=== PATIENT | male | born 1965 | race African-American/Black ===

== ENCOUNTER 2018-01-06 06:55 | Day surgery (SDC) | payer BC ==
[2018-01-06] MEDS ORDERED: ONDANSETRON HCL INJ/PF 4 MG/2 ML SDV ONE (07:14)
[2018-01-06] MEDS ORDERED: NALOXONE HCL INJ/PF 0.4 MG/1 ML SDV ONE (07:14)
[2018-01-06] MEDS ORDERED: DIPHENHYDRAMINE HCL 50 MG/ML VIAL ONE (07:14)
[2018-01-06] MEDS ORDERED: GLUCAGON,HUMAN RECOMB 1 MG INJ ONE (07:15)
[2018-01-06] MEDS ORDERED: FENTANYL CITRATE INJ/PF 100 MCG/2 ML AMPUL ONE (07:15)
[2018-01-06] MEDS ORDERED: EPINEPHRINE INJ 1 MG/10 ML DISP.SYRIN ONE (07:15)
[2018-01-06] MEDS ORDERED: FLUMAZENIL INJ 0.5 MG/5 ML VIAL ONE (07:15)
[2018-01-06] MEDS: MIDAZOLAM 2 MG/2 ML INJ ONE ×2 (08:09→08:13)
--- NOTE | 2018-01-06 08:34 | Operative Report ---
Operative Report DATE OF SURGERY: 01/06/18 Operative Report: The risks, benefits and alternatives of the procedure including risks of bleeding, perforation requiring surgery are explained to the patient in detail and informed consent is obtained. Patient was taken back to the endoscopy suite and placed on the left, lateral decubital position. Timeout was called. Conscious sedation medications are provided. A rectal examination is done which did not reveal any masses, tears or fissures. An Olympus videoscope was inserted into the patient's rectum. Scope was then carefully advanced all the way to the cecum. The cecum was identified by the usual anatomical landmarks including the ileocecal valve as well as the appendiceal office.. Photodocumentation is obtained. Prep is reasonably good. The scope was then sequentially pulled back via the various segments of the colon including the ascending colon, hepatic flexure, transverse colon, splenic flexure, descending colon and finally in to the rectosigmoid portions of the colon. Retroflexion maneuvers performed. PREOPERATIVE DIAGNOSIS: Colorectal cancer screening POSTOPERATIVE DIAGNOSIS: Normal screening colonoscopy OPERATION: Diagnostic colonoscopy SURGEON: DENYS PARDO ANESTHESIA: Moderate Sedation - 3 mg of Versed, 100 mcg of fentanyl. Conscious sedation monitoring time 30 minutes. TISSUE REMOVED OR ALTERED: None. COMPLICATIONS: None. ESTIMATED BLOOD LOSS: None. INTRAOPERATIVE FINDINGS: As noted above. PROCEDURE: Patient tolerated procedure well. No immediate postprocedure complications are noted. Patient discharged in good condition. Discharge date 01/06/2018. Discharge diet: Regular. Discharge activity: Regular. 2-3 week follow-up to discuss findings. 10 year surveillance colonoscopy.
[2018-01-06 09:21] VITALS: BP 127/60
== END 2018-01-06 09:30 | disposition home or self-care (01) ==
LOC: END 06:55
PROVIDERS: ATTEND Internal Medicine Gastroenterology
DX: Z12.11 Encounter for screening for malignant neoplasm of colon (principal); R01.1 Cardiac murmur, unspecified
CPT/HCPCS: 45378; J2250; J3010; J0171; J1200; J1610; J2310; J2405; J3490

== ENCOUNTER 2018-01-30 23:44 | Emergency (ER) | payer BC ==
--- NOTE | 2018-01-31 00:38 | ER Document Report ---
ED General - General Chief Complaint: Chest Pain Stated Complaint: CHEST PAINS Time Seen by Provider: 01/31/18 00:36 Notes: Patient is 52-year-old male who presents with complaint of pain in his chest is been intermittent for a few days but became constant today. He says it is a tightness type pain across his chest. Occasional have sharp pain goes into his neck and jaw on the right side. He denies any fevers. No vomiting. No difficulty breathing. He does not think it is related to food. He said he initially felt like it could be indigestion but then it became very constant and therefore he came to the ER. He has no history of heart disease. He does not take any medications. He is really very healthy. His EKG does show bradycardia and the patient does admit that his heart rate is low on a chronic basis and that this is not abnormal for him. He does not smoke. He denies a family history of heart disease. No other complaints at this time. TRAVEL OUTSIDE OF THE [place] IN LAST 30 DAYS: No - Related Data Allergies/Adverse Reactions: No Known Allergies Allergy (Verified 01/30/18 23:45) Past Medical History - Social History Smoking Status: Never Smoker Frequency of alcohol use: None Drug Abuse: None Family History: Reviewed & Not Pertinent - Past Medical History Cardiac Medical History: Denies: Hx Coronary Artery Disease, Hx Heart Attack, Hx Hypertension Pulmonary Medical History: Denies: Hx Asthma, Hx Bronchitis, Hx COPD, Hx Pneumonia Neurological Medical History: Denies: Hx Cerebrovascular Accident, Hx Seizures Musculoskeltal Medical History: Denies Hx Arthritis - Immunizations Hx Diphtheria, Pertussis, Tetanus Vaccination: Yes Review of Systems - Review of Systems Notes: My Normal Review Basic REVIEW OF SYSTEMS: CONSTITUTIONAL : Denies fever, chills, or sweats. Denies recent illness. EENT: Denies eye, ear, throat, or mouth pain or symptoms. Denies nasal or sinus congestion. CARDIOVASCULAR: Chest pain RESPIRATORY: Denies cough, cold, or chest congestion. Denies shortness of breath, difficulty breathing, or wheezing. GASTROINTESTINAL: Denies abdominal pain. Denies nausea, vomiting, or diarrhea. MUSCULOSKELETAL: Denies neck or back pain or joint pain or swelling. SKIN: Denies rash or skin lesions. NEUROLOGICAL: Denies altered mental status or loss of consciousness. Denies headache. Denies weakness or paralysis or loss of use of either side. Denies problems with gait or speech. Denies sensory or motor loss. ALL OTHER SYSTEMS REVIEWED AND NEGATIVE. Physical Exam - Vital signs Vitals: Temp Pulse Resp BP Pulse Ox 97.8 F 43 L 20 112/73 96 01/31/18 00:25 01/31/18 00:25 01/31/18 00:25 01/31/18 00:25 01/31/18 00:25 - Notes Notes: General Appearance: Well nourished, alert, cooperative, no acute distress, no obvious discomfort. Well appearing Vitals: reviewed, See vital signs table. Head: no swelling or tenderness to the head Eyes: PERRL, EOMI, Conjuctiva clear Mouth: No decreasd moisture Throat: No tonsillar inflammation, No airway obstruction, No lymphadenopathy Neck: Supple, no neck tenderness, Chest wall: No reproducible tenderness palpation of chest wall. Lungs: No wheezing, No rales, No rhonci, No accessory muscle use, good air exchange bilaterally. Heart: Normal rate, Regular rythm, No murmur, no rub Abdomen: Normal BS, soft, No rigidity, No abdominal tenderness, No guarding, no rebound Extremities: strength 5/5 in all extremities, good pulses in all extremities, no swelling or tenderness in the extremities, no edema. Skin: warm, dry, appropriate color, no rash Neuro: speech clear, oriented x 3, normal affect, responds appropriately to questions. Course - Re-evaluation Re-evalutation: 01/31/18 02:34 Patient's chest pain was not at all effective on nitro. He looks well. I think is less likely that his chest pain is related to his heart being that patient works out every day. He says he does cardiac workouts every morning and when doing so he he does not have any increase or worsening of his chest pain whatsoever. His heart score is 2. I talked him at length about with the heart score meant and informed him that with a heart score of 2 his predicted risk of a major cardiac event next 6 weeks is 1.6%. I informed him that if he is uncomfortable at this time still more than happy to admit him to the hospital to do further testing or he can follow up with the [facility] outpatient only very closely for further workup and stress testing. Patient says he prefers follow-up outpatient. He says he feels well and does not want to stay in hospital. I think this is appropriate. Informed him he still does have a low threshold to return to ER immediately if he has recurrent worsening chest pain, with the breathing, diaphoresis, or she feels unwell in any way. I will start the patient on enteric-coated aspirin also start taking Pepcid as the patient himself thinks may be his symptoms could be related to indigestion. I informed patient that I cannot tell for sure if his symptoms are related to indigestion and that is why still extremely important that he follows up with the [facility]. Patient agrees with plan will be discharged home. Dictation of this chart was performed using voice recognition software; therefore, there may be some unintended grammatical errors. - Vital Signs Vital signs: Temp Pulse Resp BP Pulse Ox 97.8 F 43 L 20 112/73 96 01/31/18 00:25 01/31/18 00:25 01/31/18 00:25 01/31/18 00:25 01/31/18 00:25 - Laboratory Result Diagrams: 01/31/18 01:31 01/31/18 01:31 - EKG Interpretation by Me Additional EKG results interpreted by me: 01/31/18 00:37 EKG is reviewed and interpreted by me. EKG shows sinus bradycardia with rate of [address] segment elevation or depression. T-wave inversion in lead III and aVF. NC interval slightly prolonged at 220. QRS duration QTc intervals are within normal range. No old EKG available for comparison. Discharge - Discharge Clinical Impression: Chest pain Qualifiers: Chest pain type: unspecified Qualified Code(s): R07.9 - Chest pain, unspecified Condition: Good Disposition: HOME, SELF-CARE Additional Instructions: Please take the enteric coated 81mg aspirin every day. As discussed with you, just because your cardiac workup is normal here does not mean that there is not potential that your chest pain could be related to your heart; therefore, it is still very important that you follow-up with the [facility] worker. Please call Dr. Auguste's office in the morning to make a close follow-up appointment. You need to have a very low threshold to return to the ER if you have worsening chest pain, abnormal sweating, feel weak, have shortness of breath, or if you feel that you are worsening in any way. Please take [id number] Zantac or Pepcid every day and eat a very bland diet and avoid spicy, fatty, and fried foods. Prescriptions: Aspirin [Ecotrin 81 mg EC Tablet] 81 mg PO DAILY #30 tab Referrals: KRISTEN AUGUSTE MD [ACTIVE STAFF] - Follow up tomorrow (call office in the morning to make a follow up appointment within the next 48 hours)
[2018-01-31] MEDS ORDERED: NITROGLYCERIN 2% OINTMENT 1 GM PACKET TP ONE (00:44)
[2018-01-31] MEDS ORDERED: ASPIRIN 325 MG TABLET PO ONE (00:46)
[2018-01-31 01:38] LABS: ABSOLUTE EOSINOPHILS # (AUTO) 0.1 10^3/uL (0.0-0.6); ABSOLUTE LYMPHOCYTES (AUTO) 2.1 10^3/uL (0.5-4.7); ABSOLUTE MONOCYTES (AUTO) 0.4 10^3/uL (0.1-1.4); ABSOLUTE NEUT (AUTO) 2.5 10^3/uL (1.7-8.2); BASOPHILS % (AUTO) 0.6 % (0-2); EOSINOPHILS % (AUTO) 2.2 % (0-6); HEMATOCRIT 42.8 % (37.9-51.0); HEMOGLOBIN 14.6 g/dL (13.5-17.0); LYMPHOCYTES % (AUTO) 40.3 % (13-45); MEAN CORPUSCULAR HEMOGLOBIN 29.9 pg (27.0-33.4); MEAN CORPUSCULAR HGB CONC 34.2 g/dL (32.0-36.0); MEAN CORPUSCULAR VOLUME 88 fl (80-97); MONOCYTES % (AUTO) 7.2 % (3-13); PLATELET COUNT 234 10^3/uL (150-450); RED BLOOD COUNT 4.89 10^6/uL (4.35-5.55); RED CELL DISTRIBUTION WIDTH 13.4 % (11.5-14.0); SEGMENTED NEUTROPHILS % (AUTO) 49.7 % (42-78); TOTAL CELLS COUNTED % (AUTO) 100 %; WHITE BLOOD COUNT 5.1 10^3/uL (4.0-10.5)
--- NOTE | 2018-01-31 01:38 | RADIOLOGY REPORT (SQ) ---
EXAM DESCRIPTION: XR CHEST 1 VIEW CLINICAL HISTORY: 52 years Male, chest pain COMPARISON: None. NUMBER OF VIEWS/TECHNIQUE: 1/AP FINDINGS: Adequate lung volume, clear parenchyma, normal cardiac silhouette, and intact bony thorax. IMPRESSION: No acute cardiopulmonary findings.
[2018-01-31 01:54] LABS: ALANINE AMINOTRANSFERASE 27 U/L (21-72); ALBUMIN 3.8 g/dL (3.5-5.0); ALKALINE PHOSPHATASE 53 U/L (38-126); ANION GAP 7 (5-19); ASPARTATE AMINO TRANSFERASE 25 U/L (17-59); BILIRUBIN,DIRECT 0.3 mg/dL (0.0-0.4); BILIRUBIN,TOTAL 0.7 mg/dL (0.2-1.3); BLOOD UREA NITROGEN 15 mg/dL (7-20); CALCIUM 9.7 mg/dL (8.4-10.2); CARBON DIOXIDE 29 mmol/L (22-30); CHLORIDE 104 mmol/L (98-107); GLUCOSE 104 mg/dL (75-110); POTASSIUM 3.9 mmol/L (3.6-5.0); SODIUM 140.2 mmol/L (137-145); TOTAL PROTEIN 6.8 g/dL (6.3-8.2)
[2018-01-31] MEDS ORDERED: FAMOTIDINE 20 MG TABLET PO ONE (02:33)
[2018-01-31 03:08] VITALS: BP 115/78
--- NOTE | 2018-01-31 09:58 | EKG REPORT ---
SEVERITY:- ABNORMAL ECG - SINUS RHYTHM FIRST DEGREE AV BLOCK BORDERLINE LEFT AXIS DEVIATION NONSPECIFIC T ABNORMALITIES, INFERIOR LEADS : Confirmed by: Audelia Ren MD 31-Jan-2018 09:57:55
== END 2018-01-31 02:48 | disposition home or self-care (01) ==
LOC: ER 23:44
DX: R07.9 Chest pain, unspecified (principal); M54.2 Cervicalgia; R68.84 Jaw pain
CPT/HCPCS: 36415; 71045; 80053; 84484; 85025; 93005; 93010; 99285

== ENCOUNTER 2018-03-23 11:25 | Day surgery (SDC) | payer BC ==
[2018-03-23] MEDS ORDERED: DIPHENHYDRAMINE HCL 50 MG/ML VIAL ONE (11:36)
[2018-03-23] MEDS ORDERED: NALOXONE HCL INJ/PF 0.4 MG/1 ML SDV ONE (11:37)
[2018-03-23] MEDS ORDERED: MIDAZOLAM 2 MG/2 ML INJ ONE (11:37)
[2018-03-23] MEDS ORDERED: ONDANSETRON HCL INJ/PF 4 MG/2 ML SDV ONE (11:37)
[2018-03-23] MEDS ORDERED: EPINEPHRINE INJ 1 MG/10 ML DISP.SYRIN ONE (11:38)
[2018-03-23] MEDS ORDERED: FLUMAZENIL INJ 0.5 MG/5 ML VIAL ONE (11:38)
[2018-03-23] MEDS ORDERED: GLUCAGON,HUMAN RECOMB 1 MG INJ ONE (11:38)
[2018-03-23] MEDS ORDERED: FENTANYL CITRATE INJ/PF 100 MCG/2 ML AMPUL ONE ×2 (11:38)
[2018-03-23] MEDS: MIDAZOLAM 2 MG/2 ML INJ ONE ×2 (13:04→13:06)
--- NOTE | 2018-03-23 13:25 | Operative Report ---
Operative Report DATE OF SURGERY: 03/23/18 Operative Report: The risks benefits and alternatives of the procedure explained to the patient in detail and informed consent is obtained.A GIF Olympus video scope was inserted into the patient's mouth and hypopharynx, the esophagus is identified intubated and insufflated, the scope was then advanced through the esophagus stomach and duodenum, retroflexion maneuver is done, the esophagus stomach and first and second portions of the duodenum examined PREOPERATIVE DIAGNOSIS: Dyspepsia, gastroesophageal reflux disease POSTOPERATIVE DIAGNOSIS: Gastritis status post biopsy rule out Helicobacter pylori OPERATION: EGD with biopsy SURGEON: DENYS PARDO ANESTHESIA: Moderate Sedation - 4 mg of Versed, 50 mcg of fentanyl. Conscious sedation monitoring time 30 minutes. TISSUE REMOVED OR ALTERED: Gastric specimen obtained COMPLICATIONS: None. ESTIMATED BLOOD LOSS: None. INTRAOPERATIVE FINDINGS: As noted above. PROCEDURE: Patient tolerated the procedure well. No immediate postprocedure complications are noted. Patient discharged in good condition. Discharge date 03/23/2018. Discharge diet: Regular. Discharge activity: Regular. 2-3 week follow-up to discuss findings. Patient is instructed call the office or proceed to the emergency room should there be any further problems or questions. We will wait on the pathology.
[2018-03-23 14:58] VITALS: BP 110/70
== END 2018-03-23 14:40 | disposition home or self-care (01) ==
LOC: END 11:25
PROVIDERS: ATTEND Internal Medicine Gastroenterology
DX: K21.9 Gastro-esophageal reflux disease without esophagitis (principal); K29.70 Gastritis, unspecified, without bleeding
CPT/HCPCS: 43239; 88305 ×2; J2250; J3010; J0171; J1200; J1610; J2310; J2405; J3490